=== PATIENT | male | born 1955 | race Caucasian/White ===

== ENCOUNTER 2023-07-30 18:37 | Emergency (ER) | payer MEDICARE, OTHER, SELFPAY ==
--- NOTE | ~2023-07-30 | XR_ITS ---
EXAMINATION: XR wrist RT min 3V DATE: 07/30/2023 19:01 INDICATION: Right wrist pain. Fall. TECHNIQUE: 4 views of right wrist were obtained. COMPARISON: None. FINDINGS: Bone alignment is normal. No fracture. There is mild osteoarthritis of triscaphe joint and first carpometacarpal joint. IMPRESSION: 1. Mild polyarticular osteoarthritis. Reviewed, dictated and finalized at location E.
[2023-07-30 18:50] VITALS: BP 145/100; PULSE 94; RESP 18; TEMP 36.5; O2SAT 96
[2023-07-30] MEDS: TETANUS,DIPHTHERIA,AC PERTUSSIS ADULT (0.5 ML) BOOSTRIX IM (19:30)
--- NOTE | 2023-07-30 20:04 | ED.GENADULT ---
HPI - General Adult General Chief complaint: Extremity Injury, Upper Stated complaint: Fall Injury to Right Arm Time Seen by Provider: 07/30/23 20:04 Source: patient, RN notes reviewed and old records reviewed Mode of arrival: ambulatory Limitations: no limitations History of Present Illness HPI narrative: 68-year-old male to [facility] for injury to right dorsal wrist. Patient was removing trouble at home and lost his balance and fell onto exposed nails with his right wrist. Patient presents with 2 small puncture wounds to right dorsal wrist. Bleeding controlled. Patient states last tetanus shot was in 2016. patient denies tingling, numbness, prior injury. Patient in no acute distress Related Data Allergies Allergy/AdvReac Type Severity Reaction Status Date / Time No Known Allergies Allergy Verified 07/30/23 19:49 Review of Systems Review of Systems: All systems reviewed & are unremarkable except as noted in HPI and below Constitutional: Constitutional: Reports no additional constitutional complaints Eyes: Eyes: Reports no additional eye complaints ENT: Reports system reviewed and no additional complaints, except as documented Cardiovascular: Cardiovascular: Reports no additional cardiovascular complaints, Denies chest pain and Denies dyspnea Respiratory: Respiratory: Reports no additional respiratory complaints, Denies cough and Denies dyspnea Musculoskeletal: Musculoskeletal: Reports as per HPI and Reports arthralgias ( right wrist) Integumentary/Breasts: Skin/Breast: Reports wounds ( 2 small puncture wounds right dorsal wrist) Neurologic: Reports system reviewed and no additional complaints, except as documented Psychiatric: Psychiatric: Reports no additional psychiatric complaints PMFSH Family History Family History Mother Patient's mother is in good health Father Patient's father is in good health Sibling Patient's sister is in good health Patient's brother is in good health Social History Social History Smoking status: Never smoker Alcohol intake: current Comments At the time of my signature, I reviewed and agree with the nursing past medical, surgical, social, and family history. There is no relevant family history pertinent to the patient complaint. Exam Const: General: cooperative, healthy appearing, comfortable, no acute distress, alert and well nourished Nutritional Appearance: well nourished Orientation/consciousness: patient oriented x3 Limitations: no limitations HENMT: Head: normal to inspection Ears: external ears normal Face/Nose/Sinus: Normal external nose present, Normal nares present, normal facial exam, No erythema and No edema Face and sinus: normal facial exam, no erythema and no edema Mouth: Yes Normal oral and palatal mucosa present Eyes: General: appearance normal, both eyes and all related structures Neck: Neck: normal visual inspection, full ROM and no meningeal signs Lymphatic: no lymphadenopathy noted and no lymphedema noted Chest: Chest palpation & inspection: normal inspection of the chest Resp: Effort & Inspection: normal respiratory effort and able to speak in complete sentences Auscultation: clear to auscultation bilaterally Cardio: Jugular venous distension: no JVD Rate: regular rate Rhythm: regular rhythm Back/Spine/Pelvis: Cervical Spine: cervical ROM normal Skin: General skin exam: normal color, dry skin and wounds noted ( 2 puncture wounds right dorsal wrist. Bleeding controlled) Neuro: General: patient oriented x3, gait normal, moves all extremities and no meningeal signs Speech: normal speech Gait exam (Neuro): Normal gait present Extrem: General: full ROM, capillary refill normal, normal exam except as noted, no joint enlargement, no cyanosis and edema right ( wrist) Right upper extremity: wrist tenderness, sw
== END 2023-07-30 20:13 | disposition home or self-care (01) ==
PROVIDERS: Emergency Provider Nurse Practitioner Family
DX: S61.531A Puncture wound without foreign body of right wrist, initial encounter (principal); W19.XXXA Unspecified fall, initial encounter; M25.531 Pain in right wrist; Z23 Encounter for immunization
CPT/HCPCS: 73110; 90471; 90715; 99203; G0463

== ENCOUNTER 2024-04-02 14:53 | Emergency (ER) | payer MEDICARE, OTHER, SELFPAY ==
--- NOTE | ~2024-04-02 | XR_ITS ---
XR chest 2V Ordering provider: Cecy Jimenez APRN History: 68 years Male with . cough. sx x2 weeks. smoker . Comparison: September 27, 2012 FINDINGS: MEDIASTINUM: The cardiac silhouette is not enlarged. Calcified hilar lymph nodes. LUNGS: No infiltrates, effusions or pneumothorax. Underlying emphysematous changes. OTHER: No free air under the diaphragm. IMPRESSION: No acute cardiopulmonary pathology. Reviewed, dictated and finalized at location A. [facility]
[2024-04-02 15:29] VITALS: BP 148/96; PULSE 102; RESP 16; TEMP 37; O2SAT 98
[2024-04-02 16:03] LABS: EDCOVIDSCREEN Negative (Negative); EDINFLUASCREEN Negative (Negative); EDINFLUBSCREEN Negative (Negative)
--- NOTE | 2024-04-02 16:40 | ED_ITS ---
HPI - URI/Sore Throat General Chief Complaint: Upper Respiratory Infection Stated Complaint: flu like symptoms Time Seen by Provider: 04/02/24 16:40 Source: patient, RN notes reviewed and old records reviewed Mode of arrival: ambulatory Limitations: no limitations History of Present Illness HPI Narrative: 68-year-old male presents to the [facility] with cough and runny nose for several weeks. Reports that he felt feverish today. Patient is a smoker. Related Data Allergies Allergy/AdvReac Type Severity Reaction Status Date / Time No Known Allergies Allergy Verified 04/02/24 15:56 Review of Systems Review of Systems: All systems reviewed & are unremarkable except as noted in HPI and below Constitutional: Constitutional: Reports no additional constitutional complaints ENT: Reports as per HPI Cardiovascular: Cardiovascular: Reports no additional cardiovascular complaints, Denies chest pain and Denies dyspnea Respiratory: Respiratory: Reports as per HPI, Denies chest congestion, Reports cough and Denies dyspnea Musculoskeletal: Musculoskeletal: Reports no additional musculoskeletal complaints Integumentary/Breasts: Skin/Breast: Reports system reviewed and no additional complaints, except as docu PMFSH Family History Family History Mother Patient's mother is in good health Father Patient's father is in good health Sibling Patient's sister is in good health Patient's brother is in good health Social History Social History (Updated 04/03/24 @ 16:15 by Cecy Jimenez APRN) Smoking status: Current every day smoker Alcohol intake: current Comments At the time of my signature, I reviewed and agree with the nursing past medical, surgical, social, and family history. There is no relevant family history pertinent to the patient complaint. Exam Const: General: cooperative, healthy appearing, comfortable, no acute distress, well developed, alert and well nourished Nutritional Appearance: well nourished Orientation/consciousness: patient oriented x3 Limitations: no limitations HENMT: Head: normal to inspection Eyes: General: appearance normal, both eyes and all related structures Alignment and Position: alignment normal Neck: Neck: normal visual inspection, full ROM, no lymphadenopathy and no meningeal signs Chest: Chest palpation & inspection: normal inspection of the chest Resp: Effort & Inspection: normal respiratory effort and able to speak in complete sentences Auscultation: clear to auscultation bilaterally, no crackles, no rales, no rhonchi and no wheezes Cardio: Rate: regular rate Skin: General skin exam: normal color and no rashes or lesions noted Neuro: General: patient oriented x3, gait normal, moves all extremities and no meningeal signs Cognition (Neuro): normal cognition Speech: normal speech Gait exam (Neuro): Normal gait present Extrem: General: normal to inspection, full ROM, capillary refill normal and normal gait Psych: Appearance: grossly normal and well kempt Mental Status: mental status grossly normal Speech and movement: Normal speech and movement present and Clear speech present Affect: normal affect Attitude: cooperative Course Course Level of Care: Express Care Visit Vital Signs Vital signs: Vital Signs Temperature 98.6 F 04/02/24 15:29 Pulse Rate 102 H 04/02/24 15:29 Respiratory Rate 16 04/02/24 15:29 Blood Pressure 148/96 H 04/02/24 15:29 Pulse Oximetry 98 04/02/24 15:29 Oxygen Delivery Room Air 04/02/24 15:29 Temperature 98.6 F 04/02/24 15:29 Pulse Rate 102 H 04/02/24 15:29 Respiratory Rate 16 04/02/24 15:29 Blood Pressure 148/96 H 04/02/24 15:29 Pulse Oximetry 98 04/02/24 15:29 Oxygen Delivery Room Air 04/02/24 15:29 Reviewed MDM - URI/Sore Throat MDM Narrative Medical decision making narrative: Patient sitting comfortably in exam room. Nontoxic, vitals stable Patient in no acute distress. Patient presents with a cough for at least 2 weeks. Patient is a smoker. Patient's x-ray showed no pneumonia Flu, COVID are negative. Patient is appropriate for outpatient treatment with follow-up. Discharge instructions reviewed with patient, as well as provided in writing per nursing staff. The instructions also include specific and strict return/GO TO THE ER as well as f/u information. All questions have been answered, and the patient deny any further questions with discharge and discharge plan. Some parts of this dictation were generated by voice recognition software and may contain typographical and/or grammatical inaccuracies. Differential Diagnosis Differential diagnosis: Likely upper respiratory infection, otitis media, sinusitis, viral infection and bronchitis Lab Data Labs: Lab Results 04/02/24 Range/Units 15:50 POC Influenza A Ag Negative (Negative) POC Influenza B Ag Negative (Negative) POC SARS CoV-2 Ag Negative (Negative) Reviewed Imaging Data Radiologist's impression: XR chest 2V Ordering provider: Cecy Jimenez APRN History: 68 years Male with . cough. sx x2 weeks. smoker . Comparison: September 27, 2012 FINDINGS: MEDIASTINUM: The cardiac silhouette is not enlarged. Calcified hilar lymph nodes. LUNGS: No infiltrates, effusions or pneumothorax. Underlying emphysematous changes. OTHER: No free air under the diaphragm. IMPRESSION: No acute cardiopulmonary pathology. Critical Care Time Critical Care Time Critical Care Time: No Discharge Plan Discharge Clinical Impression: Bronchitis Emphysema, unspecified Qualifiers: Emphysema type: unspecified Qualified Code(s): J43.9 - Emphysema, unspecified Patient Disposition: Home, Self-Care Condition: Stable Instructions: Antibiotic Form, Acute Bronchitis (ED), Emphysema (DC) Additional Instructions: Follow-up with primary care provider as soon as possible. Today your blood pressure was 148/96. Also for evaluation of your emphysema/COPD A list for [facility] If you are having a hard time finding a physician please call our [facility] liaison at [phone]. Take medications as prescribed For new or worsening symptoms go directly to the emergency room Patient Language: Turkmen Prescriptions: New doxycycline monohydrate 100 mg tablet 100 mg PO BID Qty: 14 0RF albuterol sulfate 90 mcg/actuation HFA aerosol inhaler 2 puff inhalation QID PRN (Reason: shortness of breath or wheezing) Qty: 6.7 0RF (DME) Aerochamber MV Spacer See Rx Instructions .Route Qty: 1 0RF Rx Instructions: As directed prednisone 20 mg tablet See Rx Instructions .Route .COMPLEX Qty: 9 0RF Rx Instructions: Take 40 mg daily for 3 days, 20 mg daily for 3 days Follow-up/Referrals: PHYSICIAN,PREMIUM SERVICE REPRESENTATIVE [Primary Care Provider] - Stand Alone Forms: Work/School Release IP Time of Disposition: 16:47
== END 2024-04-02 16:50 | disposition home or self-care (01) ==
PROVIDERS: Emergency Provider Nurse Practitioner
DX: J40 Bronchitis, not specified as acute or chronic (principal); J43.9 Emphysema, unspecified; Z20.822 Contact with and (suspected) exposure to COVID-19; F17.200 Nicotine dependence, unspecified, uncomplicated
CPT/HCPCS: 71046; 87426; 87804; 99213; G0463

== ENCOUNTER 2024-11-05 17:23 | Emergency (ER) | payer MEDICARE, OTHER, SELFPAY ==
--- NOTE | 2024-11-05 17:25 | ED.DIZZY ---
HPI - Dizziness General Chief Complaint: Dizziness Stated Complaint: Light Headed Time Seen by Provider: 11/05/24 17:24 Source: patient Mode of arrival: ambulatory Limitations: no limitations History of Present Illness HPI Narrative: Jose is a 69-year-old male patient presenting to the clinic today with complaints of lightheadedness/dizziness x1 week. He reports over the past week he has had some dizziness when getting up in the middle of the night and he is having to hold onto things to steady his balance however over the past 3 days he has had dizziness constantly. He denies any fevers, chills, URI symptoms, ear pain, headache, visual changes, shortness breath, or chest pain. He is a current smoker. Does not take any home medications. No known past medical history. Related Data Allergies Allergy/AdvReac Type Severity Reaction Status Date / Time No Known Allergies Allergy Verified 11/05/24 17:34 Review of Systems Review of Systems: Pertinent positives per HPI. Patient denies any fever, chills, rash, headache, visual changes, cough, runny nose, sore throat, shortness of breath, chest pain, palpitations, nausea, vomiting, diarrhea, constipation, abdominal pain, or any urinary issues. PMFSH Family History Family History Mother Patient's mother is in good health Father Patient's father is in good health Sibling Patient's sister is in good health Patient's brother is in good health Social History Social History Smoking status: Current every day smoker Alcohol intake: current Comments At the time of my signature, I reviewed and agree with the nursing past medical, surgical, social, and family history. There is no relevant family history pertinent to the patient complaint. Exam Narrative: General: Well-developed, well nourished, in no apparent distress Head: Normocephalic, atraumatic Eyes: Pupils equally round and reactive to light bilaterally, EOM intact, sclera and conjunctive clear, no discharge, lids normal, no nystagmus Ears: TMs intact and clear, ear canals clear, no drainage, grossly hearing normal. Nose: Nares patent, no discharge, no inflammation, no sinus tenderness. Mouth: Oropharynx without lesions or masses, good dentition, MMM. Tongue midline, even rise and fall of uvula Neck: Supple, trachea midline, no enlargement of anterior or posterior cervical nodes, no thyroid masses or goiter palpable. Cardio: Regular rate and rhythm, s1 and s2 normal, no murmur appreciated. Resp: Clear to auscultation bilaterally anteriorly and posteriorly, no rhonchi, rales, wheezing or rubs Musculoskeletal: No deformity, non-tender to palpation, grossly normal range of motion, muscle strength strong and equal, peripheral pulse strong, no edema, no cyanosis, normal gait and station Neuro: Alert and oriented x4 with normal speech, no focal deficits, cranial nerves I through XII intact, muscle strength 5 out of 5, sensation intact bilaterally Course Course Emergency Course: Portions of this record may have been created with voice recognition software. Level of Care: Express Care Visit Vital Signs Vital signs: Vital Signs Temperature 37.2 C 11/05/24 17:34 Pulse Rate 90 11/05/24 17:34 Respiratory Rate 20 11/05/24 17:34 Blood Pressure 137/97 H 11/05/24 17:34 Pulse Oximetry 97 11/05/24 17:34 Oxygen Delivery Room Air 11/05/24 17:34 Temperature 37.2 C 11/05/24 17:52 Pulse Rate 90 11/05/24 17:52 Respiratory Rate 20 11/05/24 17:52 Blood Pressure 137/97 H 11/05/24 17:52 Pulse Oximetry 97 11/05/24 17:52 Oxygen Delivery Room Air 11/05/24 17:52 Vital signs reviewed MDM - Dizziness MDM Narrative Medical decision making narrative: At the time of visit patient is resting comfortably on the exam table. Patient appears to be nontoxic. Complaints of lightheadedness/dizziness x1 week. He reports over the past week he has had some dizziness when getting up in the middle of the night and he is having to hold onto things to steady his balance however over the past 3 days he has had dizziness constantly. He denies any fevers, chills, URI symptoms, ear pain, headache, visual changes, shortness breath, or chest pain. He is a current smoker. Does not take any home medications. Patient has been working outside in the heat over the past week. Neuro exam normal in the clinic today. Does have a small amount of cerumen bilateral ear canals. Will order EKG, urine, bedside glucose, and orthostatic blood pressures. EKG: EKG shows sinus rhythm with heart rate of 72 beats per minute with a borderline left axis deviation in a moderate intraventricular conduction delay. No ST elevation, depression, or T-wave inversion noted. Labs: Bedside glucose was 100. Urine dip shows a trace of blood but otherwise no sign of infection, protein, or glucose. Orthostatic blood pressures: Orthostatic blood pressures lying was 140/87 with a heart rate of 68, sitting was 144/97 with a heart rate of 73, and standing 121/98 with heart rate of 90. No dizziness when going from sitting to standing Plan: Offer to send patient to the ER for further evaluation as he did have a blood pressure drop from sitting to standing 144/97 to 121/98 versus going home to hydrate and receiving prescription for meclizine for dizziness. Explained to the patient that they may be able to find a more definitive reason as to why he is dizzy if he goes to the emergency room. Patient has been working outside in the heat over the past week. Symptoms could be likely due to dehydration but cannot completely rule out anemia or electrolyte imbalance. Neuro exam is normal in the clinic today. Patient would like to go home and try pushing fluids and taking meclizine and if his symptoms worsen he will go to the emergency room. Patient does not have a PCP so a primary care list of doctors accepting patient was given to the patient. Supportive measures were discussed with the patient and they voiced understanding discharge instructions and agrees to treatment plan. Return precautions reviewed Differential Diagnosis Differential diagnosis: Likely adverse reaction to drug, benign paroxysmal positional vertigo, orthostatic hypotension, vertebral basilar insufficiency, cerebrovascular accident, acute vestibular neuronitis, transient cerebral ischemia and other (Hyperglycemia, hypoglycemia, UTI, anemia, electrolyte imbalance, orthostatic hypotension) Lab Data Labs: Lab Results 11/05/24 11/05/24 Range/Units 17:44 17:49 POC Capillary Glucose 100 (65-105) mg/dl POC Urine Color Yellow POC Urine Clarity Clear POC Urine pH 6.5 POC Ur Specif [place] 1.020 POC Urine Protein Negative (Negative) POC Ur Glucose (UA) Negative (Negative) POC Urine Ketones Negative (Negative) POC Urine Blood Trace (Negative) POC Urine Nitrite Negative (Negative) POC Urine Bilirubin Negative (Negative) POC Urine Urobilinogen 0.2 POC U Leukocyte Esteras Negative (Negative) ECG Data EKG #1: Attestation: I personally reviewed and interpreted this ECG as follows: ECG completion date: 11/05/24 ECG completion time: 17:50 Prior ECG tracings: not available for review Interpretation: EKG shows sinus rhythm with heart rate 72 beats per minute without ST elevation, depression, or T-wave inversion. Does show borderline left axis deviation with a moderate interventricular conduction delay. AL interval is 126 milliseconds, QRS durations 118 milliseconds, QT-QTC is 384-409 milliseconds, P-R-T axis is 53 -24 38 Discharge Plan Discharge Clinical Impression: Vertigo Patient Disposition: Home Condition: Stable Instructions: Antibiotic Form, Dizziness (ED) Additional Instructions: EKG was reassuring in the clinic today. Blood sugar was 100 which is within normal limits Urinalysis shows a trace of blood. Recommend follow-up with PCP to have this recheck Orthostatic blood pressure show a drop in your blood pressure going from sitting to standing. Increase fluids and stay well hydrated Take meclizine as prescribed Go home and rest in a cool area. Change positions slowly when going from a lying to sitting, sitting to standing position Eat well-balanced meals Follow-up with your PCP-call office to schedule appointment Patient Language: Turkmen Prescriptions: New meclizine 25 mg tablet 25 mg PO TID PRN (Reason: dizziness) 7 Days Qty: 21 0RF Follow-up/Referrals: UNKNOWN,DOCTOR [Primary Care Provider] - Time of Disposition: 18:12 Quality NIHSS Nursing Documentation ED NIHSS nursing documentation: reviewed/agree
--- OUTSIDE RECORDS SUMMARY | 2024-11-05 17:25 | XMS_ITS | Clinical Summary ---
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 Role Phone Unavailable Primary Care Provider Unavailabl e Allergies No known active allergies Medications No known medications Active Problems Problem Noted Date Diagnosed Date Tobacco use 07/23/2020 Family History Medical History Relation Name Comments No Known Problems Brother No Known Problems Daughter Pacemaker Father Unknown Maternal Grandfather Unknown Maternal Grandmother Dementia Mother Unknown Paternal Grandfather Unknown Paternal Grandmother No Known Problems Sister No Known Problems Son Relation Name Status Comments Brother Alive Daughter Alive Father Alive Maternal Grandfather Maternal Grandmother Mother Alive Paternal Grandfather Paternal Grandmother Sister Alive Son Alive Social History Tobacco Use Types Packs/Day Years Used Date Smoking Tobacco: Every Day Cigarettes 0.5 40 Smokeless Tobacco: Never Alcohol Use Standard Drinks/Week Comments Not Currently 0 (1 standard drink = 0.6 oz pure alcohol) Once every couple months i have a drink or 2 Sex and Gender Information Value Date Recorded Sex Assigned at Not on file Legal Sex Male 2:38 PM CDT Gender Identity Not on file Sexual Orientation Not on file Last Filed Vital Signs Vital Sign Reading Time Taken Comments Blood Pressure 142/86 07/23/2020 10:44 AM CDT Pulse 68 07/23/2020 10:44 AM CDT Temperature 36.1 C (96.9 F) 07/23/2020 10:44 AM CDT Respiratory Rate 18 07/23/2020 10:44 AM CDT Oxygen Saturation 97% 07/23/2020 10:44 AM CDT Inhaled Oxygen Concentration - - Weight 72.1 kg (159 lb) 07/23/2020 10:44 AM CDT Height 182.9 cm (6') 07/23/2020 10:44 AM CDT Body Mass Index 21.56 07/23/2020 10:44 AM CDT Plan of Treatment Health Maintenance Due Date Last Done Comments DTAP/TDAP/TD VACCINES (1 - Tdap) 1974 FIT-DNA Q 3 years 2000 FIT/FOBT Q 1 year 2000 Flex Sig/CT Colonography Q 5 years 2000 PNEUMOCOCCAL VACCINE 50+ YEARS (1 of 1 - PCV) 04/12/19 06 ZOSTER VACCINE (1 of 2) 2005 INFLUENZA VACCINE (#1) 2024 COLORECTAL SCREENING 07/03/2029 07/04/2019 Colorectal Cancer Screening 07/03/2029 RSV VACCINE (60+ or ) (1 - 1-dose 75+ series) 2030
[2024-11-05 17:34] VITALS: BP 137/97; PULSE 90; RESP 20; TEMP 37.2; O2SAT 97
--- NOTE | 2024-11-05 17:38 | ECG_ITS ---
Test Date: 2024-11-05 17:50:04 Measurements Intervals [place] Rate: 72 P: 53 [place]: 126 QRS: -24 QRSD: 118 T: 38 QT: 384 QTc: 422 Interpretive Statements SINUS RHYTHM INTRAVENTRICULAR CONDUCTION DELAY CANNOT R/O SEPTAL INFARCT, AGE INDETERMINATE ABNORMAL ECG No previous ECG available for comparison Electronically Signed On 11-05-2024 20:28:05 CDT by Farhat Santos D.O.
[2024-11-05 17:43] VITALS: BP 140/87; PULSE 68
[2024-11-05 17:46] VITALS: BP 144/97; PULSE 73
[2024-11-05 17:49] VITALS: BP 121/98; PULSE 90
[2024-11-05 17:52] VITALS: BP 137/97; PULSE 90; RESP 20; TEMP 37.2; O2SAT 97
[2024-11-05 17:54] LABS: EDUAAPPEAR Clear; EDUABILI Negative (Negative); EDUABLOOD Trace (Negative); EDUACOLOR1 Yellow; EDUAGLUCOSE Negative (Negative); EDUAKETONE Negative (Negative); EDUALEUKO Negative (Negative); EDUANITRATE Negative (Negative); EDUAPH 6.5; EDUAPROTEIN Negative (Negative); EDUASPGRAVITY 1.020; EDUAUROBILI 0.2
[2024-11-05] MEDS: MECLIZINE HCL 25 MG TABLET PO (18:09)
== END 2024-11-05 18:19 | disposition home or self-care (01) ==
PROVIDERS: Emergency Provider Nurse Practitioner Family
DX: R42 Dizziness and giddiness (principal); F17.200 Nicotine dependence, unspecified, uncomplicated
CPT/HCPCS: 81003; 82948; 93005; 99213; A9270; G0463